=== PATIENT | male | born 1965 | race Caucasian/White ===

== ENCOUNTER 2020-04-19 09:45 | Emergency (ER) | payer OTHER, SELFPAY ==
--- NOTE | ~2020-04-19 | XR_ITS ---
EXAMINATION: XR shoulder LT min 2V DATE: 04/19/2020 10:18 INDICATION: Left shoulder injury and pain. TECHNIQUE: 4 views of left shoulder were obtained. COMPARISON: None. FINDINGS: Bone alignment is normal. No fracture. There is mild osteoarthritis of glenohumeral joint a nd moderate osteoarthritis of acromioclavicular joint. IMPRESSION: 1. Polyarticular osteoarthritis. Reviewed, dictated and finalized at location A.
[2020-04-19 09:46] VITALS: BP 128/74; PULSE 72; RESP 17; TEMP 36.4; O2SAT 100
--- NOTE | 2020-04-19 11:01 | ED.UPPEXIN ---
HPI - Extremity Injury (Upper) General Chief Complaint: Extremity Injury, Upper <Carl Soler PA-C - Last Filed: 04/19/20 11:06> Stated Complaint: LEFT SHOULDER INJURY <Carl Soler PA-C - Last Filed: 04/19/20 11:06> Time Seen by Provider: 04/19/20 10:04 <Carl Soler PA-C - Last Filed: 04/19/20 11:06> Source: patient and family <Carl Soler PA-C - Last Filed: 04/19/20 11:06> Mode of arrival: ambulatory <FARRUKH Turner Last Filed: 04/19/20 11:06> Limitations: no limitations <Carl Soler PA-C - Last Filed: 04/19/20 11:06> History of Present Illness HPI narrative: Patient is a 54-year-old male who presents with 1 week duration of shoulder injury patient was lifting a jar when he reinjured at this time is already had x-ray and muscle relaxers. Patient reinjured it last night while holding a jar patient notes aching pain to the rotator cuff musculature worse with movement and lifting the shoulder above the neutral position. Patient has not otherwise been seen for this complaint denies radicular symptoms or paresthesias. Patient took ibuprofen with minimal improvement <Carl Soler PA-C - Last Filed: 04/19/20 11:06> Related Data Allergies/Adverse Reactions: Allergies Allergy/AdvReac Type Severity Reaction Status Date / Time morphine Allergy Unknown Nausea and Verified 04/19/20 09:45 Vomiting <Carl Soler PA-C - Last Filed: 04/19/20 11:06> Review of Systems Review of Systems: All systems reviewed & are unremarkable except as noted in HPI and below <Carl Soler PA-C - Last Filed: 04/19/20 11:06> PMFSH Social History Social History: Social History Gender identity (if verbalized by the patient): Male <FARRUKH Turner Last Filed: 04/19/20 11:06> Exam Narrative: Exam Narrative: GENERAL: Well-appearing, well-nourished, and in no acute distress. HEAD: Normocephalic, atraumatic. EYES: PERRLA and EOMI. ENT: Nares clear, no rhinorrhea or epistaxis. Mucous membranes moist. CHEST: Clear to auscultation. No respiratory distress. No wheezes rales or rhonchi HEART: Regular rate and rhythm. No murmur heard. Normal peripheral pulses. EXTREMITIES: Tenderness of the anterior left rotator cuff musculature no deformities noted SKIN: Warm, dry, no rash. NEURO: No focal deficits. Alert and oriented x3. Neurovascularly intact PSYCH: Normal mood and affect. <Carl Soler PA-C - Last Filed: 04/19/20 11:06> Course Course Emergency Course: Patient aware of case findings treatment plan and diagnosis given a shot of anti-inflammatory will be sent to orthopedic surgery for reevaluation provided with reasons to return <Carl Soler PA-C - Last Filed: 04/19/20 11:06> Vital Signs Vital signs: Vital Signs Temperature 97.6 F 04/19/20 09:46 Pulse Rate 72 04/19/20 09:46 Respiratory Rate 17 04/19/20 09:46 Blood Pressure 128/74 04/19/20 09:46 Pulse Oximetry 100 04/19/20 09:46 Temperature 97.7 F 04/19/20 11:30 Pulse Rate 51 L 04/19/20 11:30 Respiratory Rate 18 04/19/20 11:30 Blood Pressure 127/79 04/19/20 11:30 Pulse Oximetry 99 04/19/20 11:30 <Carl Soler PA-C - Last Filed: 04/19/20 11:06> Vital Signs Temperature 97.6 F 04/19/20 09:46 Pulse Rate 72 04/19/20 09:46 Respiratory Rate 17 04/19/20 09:46 Blood Pressure 128/74 04/19/20 09:46 Pulse Oximetry 100 04/19/20 09:46 Temperature 97.7 F 04/19/20 11:30 Pulse Rate 51 L 04/19/20 11:30 Respiratory Rate 18 04/19/20 11:30 Blood Pressure 127/79 04/19/20 11:30 Pulse Oximetry 99 04/19/20 11:30 <Chantelle Daniel MD - Last Filed: 04/19/20 11:37> MDM - Extremity Injury (Upper) MDM Narrative Medical decision making narrative: Patients injury or pain is consistent with musculoskeletal etiology. No signs of neurologi
[2020-04-19] MEDS: KETOROLAC (*BKC) 60 MG/2 ML VIAL IM (11:24)
[2020-04-19 11:26] VITALS: BP 172/79; PULSE 51; RESP 18; TEMP 36.5; O2SAT 99
[2020-04-19 11:30] VITALS: BP 127/79; PULSE 51; RESP 18; TEMP 36.5; O2SAT 99
== END 2020-04-19 11:32 | disposition home or self-care (01) ==
PROVIDERS: Emergency Provider Emergency Medicine; PCP Emergency Medicine
DX: M19.012 Primary osteoarthritis, left shoulder (principal); M25.512 Pain in left shoulder
CPT/HCPCS: 73030; 96372; 99283; J1885

== ENCOUNTER 2020-05-01 11:03 | Outpatient (CLI) | payer OTHER, SELFPAY ==
--- NOTE | ~2020-05-01 | MR_ITS ---
EXAMINATION: MR shoulder LT wo con DATE: 05/01/2020 12:16 INDICATION: Unspecified left shoulder pain. TECHNIQUE: Magnetic resonance imaging (MRI) of the left shoulder was performed without intravenous co ntrast. Sequences included axial PD-weighted FS FSE, coronal oblique PD-weighted FS FSE, coronal obli que T2-weighted FS FSE, sagittal PD-weighted FS FSE, and sagittal T1-weighted SE. COMPARISON: Shoulder radiographs dated 04/19/2020 FINDINGS: Coracoacromial arch: The acromion undersurface is curved in morphology (type II). The coracoacromial ligament is normal. M ild acromioclavicular osteoarthritis. Rotator cuff: Supraspinatus and mild infraspinatus tendinopathy. There is a full-thickness tear of the supraspinatu s tendon which measures 6 mm both AP and medial to lateral located near the posterior aspect of the s uperior facet footplate. There is a small amount of residual tendon material along the footplate. The tear propagates additional 10 mm posteriorly along the middle facet footplate of the conjoined porti on of the supraspinatus and infraspinatus tendons where it involves approximately two thirds of the t endon thickness. The teres minor tendon is normal. And subscapularis tendinopathy without tear. Mita l rotator cuff muscle bulk and signal. Biceps tendon, glenoid labrum and glenohumeral cartilage: Long head of the biceps tendon is normal. There is a superior, anterior to posterior tear of the jordan oid labrum (SLAP tear) which extends from the 1:00 position anteriorly to the 10:00 position posterio rly. Glenohumeral cartilage is normal. Fluid: Small glenohumeral joint effusion with proportional extension of small amount of fluid the long head biceps tendon sheath as well as extending to the full-thickness rotator cuff tear can indicate with a small amount of fluid in the subacromial/subdeltoid bursa. No loose osteochondral bodies. Bones: Bone alignment is normal. No fracture or pathologic marrow replacing process. Mild cystic and hypertr ophic change along the greater tuberosity. IMPRESSION: 1. Mild to moderate rotator cuff tendinopathy with small full-thickness tear of the distal supraspina tus tendon extending posteriorly as a severe partial thickness articular sided tear of the conjoined supraspinatus and infraspinatus tendons. 2. SLAP tear of the superior glenoid labrum. Reviewed, dictated and finalized at location A. IMPRESSION: 1. Mild to moderate rotator cuff tendinopathy with small full-thickness tear of the distal supraspinatus tendon extending posteriorly as a severe partial thic kness articular sided tear of the conjoined supraspinatus and infraspinatus ten dons. 2. SLAP tear of the superior glenoid labrum.
== END 2020-05-01 11:04 | disposition home or self-care (01) ==
PROVIDERS: PCP Emergency Medicine; Visit Provider Orthopaedic Surgery
DX: S43.432D Superior glenoid labrum lesion of left shoulder, subsequent encounter (principal); X58.XXXD Exposure to other specified factors, subsequent encounter
CPT/HCPCS: 73221